=== PATIENT | female | born 1955 | race Caucasian/White ===

== ENCOUNTER 2020-09-03 13:31 | Emergency (ER) | payer MEDICAID, SELFPAY ==
[2020-09-03 13:41] VITALS: BP 177/84; PULSE 69; RESP 16; TEMP 36.6; O2SAT 94
--- NOTE | 2020-09-03 13:44 | ED.BACK ---
HPI - Back Pain/Injury General Chief Complaint: Back Pain/Injury Stated Complaint: low back and R leg pain Time Seen by Provider: 09/03/20 13:49 Source: patient Mode of arrival: ambulatory Limitations: no limitations History of Present Illness HPI Narrative: 65-year-old woman comes in today complaining of right lower back pain that started when she woke up at 6:30 a.m. this morning. Patient states the pain radiates down her right buttock, her and down her right leg to her foot. She denies falls or trauma and any weakness, incontinence, dysuria, hematuria and states that she has had urinary frequency and urgency for some time. He states he has episodes of back pain in the past but has not seen a doctor for. This morning she took Tylenol, ibuprofen and cyclobenzaprine for her symptoms. She has had no vomiting, diarrhea, abdominal pain, fever, chills or night sweats. 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 MD elicited complaint: back pain Pertinent past history: prior back pain Onset (ago): hour(s) (6) Timing: constant Severity: severe Location: lumbar spine Radiation: buttocks (right), right upper leg and right leg below the knee Exacerbating factors: sitting upright Relieving factors: other ( standing) Related Data Allergies Allergy/AdvReac Type Severity Reaction Status Date / Time No Known Allergies Allergy Verified 09/03/20 13:53 Review of Systems Constitutional: Constitutional: Denies chills, Denies fever(s) and Denies weakness Cardiovascular: Cardiovascular: Denies chest pain and Denies radiating jaw, neck or arm pain Respiratory: Respiratory: Denies cough and Denies dyspnea Gastrointestinal: Gastrointestinal: Denies abdominal pain, Denies nausea and Denies vomiting Genitourinary: Genitourinary: Denies hematuria, Reports nocturia, Denies dysuria and Denies urinary incontinence Musculoskeletal: Musculoskeletal: Reports back pain, Denies arthralgias and Denies joint swelling Integumentary/Breasts: Skin/Breast: Denies pruritus, Denies erythema and Denies rash Neurologic: Denies vertigo, Denies dizziness and Denies syncope Allergic/Immunologic: Allergic/Immunologic: Denies lip swelling and Denies throat swelling [facility] Surgical History Surgical History (Updated 09/03/20 @ 14:00 by Woody Wolff MD) H/O laparoscopy Hx of tubal ligation S/P partial hysterectomy Social History Social History Smoking status: Current every day smoker Alcohol intake: current Substance use: never Living arrangements: with family Exam Const: General: healthy appearing and alert Orientation/consciousness: patient oriented x3 Other: Moderate acute distress HENMT: Head: normal to inspection Ears: external ears normal, TM's normal bilaterally and EAC's normal General nose exam: Normal nares present Face and sinus: normal facial exam Mouth: Yes moist mucous membranes Throat: posterior oropharynx normal Eyes: Conjunctivae: conjunctivae normal Pupils: Equal, round and reactive pupils present EOM: EOMs intact bilaterally Resp: Effort & Inspection: normal respiratory effort and not labored Auscultation: clear to auscultation bilaterally, no rales, no rhonchi and no wheezes Cardio: Rate: regular rate Rhythm: regular rhythm Heart sounds: no murmurs Skin: General skin exam: normal color, no jaundice and no pallor Rashes: no rashes Neuro: General: patient oriented x3, moves all extremities, no focal motor deficits and CN's II-XI intact bilaterally Speech: normal speech Gait exam (Neuro): Normal gait present Extrem: General: normal to inspection and no clubbing, cyanosis or edema Psych: Appearance: grossly normal and well kempt Mental Status: mental status grossly normal Affect: normal affect Attitude: cooperative Thought content: Yes Normal thought content present Course Vital Signs Vital signs: Vital Signs
[2020-09-03 14:14] LABS: Add Urine Microscopic? NO; Appearance Urine Clear (Clear); Bilirubin Urine Negative (Negative); Blood Urine Negative (Negative); Color Urine Yellow (Yellow); Glucose Urine UA Negative (Negative); Ketones Urine Negative (Negative); Leukocyte Esterase Ur Negative (Negative); Nitrate Urine Negative (Negative); Protein Urine Negative (Negative); Urobilinogen Urine 0.2 mg/dL (0.2-1.0); pH Urine 6.5 (5.0-8.0)
== END 2020-09-03 14:31 | disposition home or self-care (01) ==
PROVIDERS: Emergency Provider Emergency Medicine
DX: M54.16 Radiculopathy, lumbar region (principal)
CPT/HCPCS: 81003; 99283

== ENCOUNTER 2022-10-25 12:19 | Outpatient (CLI) | payer MEDICARE, SELFPAY ==
--- NOTE | ~2022-10-25 | CT_ITS ---
Non-contrast Head CT History: Tremors, neuropathy Technique: Axial non-contrast imaging of the brain was performed. Dose reduction technique was used on this scan by utilizing automated exposure control and iterative reconstruction technique. The dose -length product (DLP) was 605.33 mGy-cm. Findings: There is no evidence of intracranial hemorrhage, mass lesion, or acute infarct. Brain par enchyma appears normal. The ventricles and subarachnoid spaces are normal in size. The calvarium ap pears normal. The visualized paranasal sinuses and mastoid air cells are clear. Impression: No significant abnormality seen. Reviewed, dictated and finalized at location . CUTTER Impression: No significant abnormality seen.
== END 2022-10-25 12:20 | disposition home or self-care (01) ==
LOC: CHSIMG 12:21
PROVIDERS: PCP Nurse Practitioner; Visit Provider Nurse Practitioner
DX: R41.3 Other amnesia (principal)
CPT/HCPCS: 70450

== ENCOUNTER 2023-08-16 16:54 | Emergency (ER) | payer MEDICARE, SELFPAY ==
[2023-08-16 16:54] VITALS: BP 177/87; PULSE 76; RESP 20; TEMP 37.1; O2SAT 96
--- NOTE | 2023-08-16 19:14 | ED.HEATRA ---
HPI - Head Injury General Chief complaint: Head Injury Stated complaint: head injury Time Seen by Provider: 08/16/23 17:58 History of Present Illness HPI Narrative: Patient is a 68-year-old female with this episode history presents today for head laceration. She has about a 5cm head laceration on the back of her head. She states she was cutting off a tree range and fell and hit her head on the branch After it was on the ground. He was BP Yousif she was able to stop bleeding with gauze. She is not today with a Tdap. She does not have any other symptoms. She had a minor headache after she had the injury but that is gone. Complaint: head injury Onset (ago): hour(s) Mechanism of Injury: fall Place: home Loss of Consciousness: no Location of injury: occipital Severity: mild Severity scale (1-10): 3 Quality: sharp Radiation: none Other Injuries: none Associated symptoms: denies other symptoms Related Data Allergies Allergy/AdvReac Type Severity Reaction Status Date / Time No Known Allergies Allergy Verified 08/16/23 17:12 Review of Systems Review of Systems: All systems reviewed & are unremarkable except as noted in HPI and below Constitutional: Constitutional: Reports as per HPI Eyes: Eyes: Reports no additional eye complaints ENT: Reports as per HPI Cardiovascular: Cardiovascular: Reports no additional cardiovascular complaints Respiratory: Respiratory: Reports no additional respiratory complaints Gastrointestinal: Gastrointestinal: Reports no additional gastrointestinal complaints Genitourinary: Genitourinary: Reports no additional female genitourinary complaints Musculoskeletal: Musculoskeletal: Reports no additional musculoskeletal complaints Integumentary/Breasts: Skin/Breast: Reports system reviewed and no additional complaints, except as docu Neurologic: Reports system reviewed and no additional complaints, except as documented Psychiatric: Psychiatric: Reports no additional psychiatric complaints Endocrine: Endocrine: Reports no additional endocrine complaints Hematologic/Lymphatic: Hematologic/Lymphatic: Reports no additional hematologic/lymphatic complaints Allergic/Immunologic: Allergic/Immunologic: Reports no additional allergic/immunologic complaints PMFSH Surgical History Surgical History H/O laparoscopy Hx of tubal ligation S/P partial hysterectomy Social History Social History Smoking status: Current every day smoker Alcohol intake: current Substance use: never Living arrangements: with family Exam Const: General: healthy appearing Nutritional Appearance: well nourished Orientation/consciousness: patient oriented x3 Limitations: no limitations HENMT: Head: laceration (5cm back of head) Ears: external ears normal Face/Nose/Sinus: Normal external nose present Face and sinus: normal facial exam Mouth: Yes Normal oral and palatal mucosa present Teeth and gingiva: dentition normal Throat: posterior oropharynx normal Eyes: Conjunctivae: conjunctivae normal Pupils: Equal, round and reactive pupils present EOM: EOMs intact bilaterally Neck: Neck: normal visual inspection Chest: Chest palpation & inspection: normal inspection of the chest Resp: Effort & Inspection: normal respiratory effort Cardio: Rate: regular rate Rhythm: regular rhythm Heart sounds: Murmur heart sound present GI: GI Palp: Yes Soft to palpation Auscultation: normal bowel sounds Back/Spine/Pelvis: Back: no CVA tenderness Skin: General skin exam: normal color Rashes: no rashes Other: 5cm laceration back of head Neuro: General: patient oriented x3 Cranial nerves: Yes CN's II-XII intact bilaterally Speech: normal speech Gait exam (Neuro): Normal gait present Extrem: General: normal to inspection Psych: Mental Status: mental status grossly normal Course Vital Sign
[2023-08-16] MEDS: TETANUS,DIPHTHERIA,AC PERTUSSIS ADULT 0.5 ML (ADACEL) IM (19:25)
[2023-08-16 19:27] VITALS: BP 140/78; PULSE 87; RESP 20; O2SAT 98
== END 2023-08-16 19:34 | disposition home or self-care (01) ==
PROVIDERS: Emergency Provider Family Medicine
DX: S01.01XA Laceration without foreign body of scalp, initial encounter (principal); F17.200 Nicotine dependence, unspecified, uncomplicated; Z23 Encounter for immunization; W45.8XXA Other foreign body or object entering through skin, initial encounter; Y92.009 Unspecified place in unspecified non-institutional (private) residence as the place of occurrence of the external cause
CPT/HCPCS: 12002; 90715; 99283

== ENCOUNTER 2023-08-18 09:14 | Emergency (ER) | payer MEDICARE, SELFPAY ==
--- NOTE | ~2023-08-18 | CT_ITS ---
EXAMINATION: CT cervical spine wo con DATE: 08/18/2023 11:22 INDICATION: Neck pain after recent fall 2 days ago. TECHNIQUE: Computed tomography (CT) of the cervical spine was performed without intravenous contrast. The dose-length product was 482 mGy-cm. Automated exposure control and iterative reconstruction tech nique were employed. COMPARISON: None FINDINGS: There is disc narrowing at C5-6, C6-7 and C7-T1 with endplate hypertrophy and sclerosis. Cr aniovertebral junction is normal. Odontoid process is normal. There is multilevel uncinate and facet hypertrophy. Lung apices are normal. There is a sclerotic lesion of C2 on the left, likely bone islan d. No evidence for perched facet. IMPRESSION: 1. No acute abnormality of the cervical spine. 2: Moderate-severe cervical spondylosis. Reviewed, dictated and finalized at location A. OSAL LEAD WRITER
--- NOTE | ~2023-08-18 | CT_ITS ---
EXAMINATION: CT BRAIN W/O DATE: 08/18/2023 11:22 INDICATION: Status post fall 2 days ago. TECHNIQUE: Computed tomography (CT) of the head was performed without intravenous contrast. The dose- length product was 681.00 mGy-cm. Automated exposure control and iterative reconstruction technique w ere employed. COMPARISON: CT dated 10/04/2022 FINDINGS: Normal brain parenchymal volume for age. Normal hanley-white differentiation. No acute intrac ranial hemorrhage, infarction, mass or mass effect. No ventriculomegaly or midline shift. Midline sagittal images demonstrate a normal corpus callosum, c raniovertebral junction and sella turcica. Basilar cisterns are patent. Paranasal sinuses and mastoids are pneumatized. No depressed skull fractures. IMPRESSION: 1. No acute intracranial abnormality. Reviewed, dictated and finalized at location A. FLIGHT CREW MEMBER
--- NOTE | ~2023-08-18 | CT_ITS ---
EXAMINATION: CT chest abdomen pelvis w con DATE: 08/18/2023 11:28 MEDICAL HEALTH RESEARCHER INDICATION: Status post fall. Left rib and back pain. TECHNIQUE: Computed tomography (CT) of the chest, abdomen, and pelvis was performed with 100 cc Omnip aque 350 intravenous contrast. The dose-length product was 1537.51 mGy-cm. Automated exposure control and iterative reconstruction technique were employed. COMPARISON: None FINDINGS: CHEST CT: Heart size normal. No significant pleural or pericardial effusion. No thoracic lymphadenopathy. There is atherosclerosis. No focal airspace disease. No endobronchial lesions. No pneumothorax. There is d egenerative grade 1 spondylolisthesis at L4-5. There is moderate thoracic and lumbar spondylosis. ABDOMEN/PELVIS CT: Fatty infiltration of the liver. Small hypervascular lesion right hepatic lobe, possibly benign trans ient hepatic difference or hemangioma. The spleen, pancreas, adrenal glands and left kidney are unrem arkable. There is a small right renal cysts. There is an small accessory splenule. The pancreas is un remarkable. Nonobstructive bowel gas pattern. There is atherosclerosis of the aorta without aneurysm. There is a retroaortic left renal vein. No free air or free fluid. IMPRESSION: 1. No acute abnormality of the chest, abdomen or pelvis. Reviewed, dictated and finalized at location A. [employer] HE[employer] RESEARCHER
[2023-08-18 09:14] VITALS: BP 163/90; PULSE 78; RESP 16; TEMP 36.3; O2SAT 95
--- NOTE | 2023-08-18 09:25 | WC.ED.TRAUMA ---
HPI - Trauma General Chief Complaint: Back Pain/Injury Stated Complaint: left side rib pain Time Seen by Provider: 08/18/23 09:24 History of Present Illness HPI narrative: Patient is a 68 year old female here with left rib pain. Patient notes that 2 days ago she was about 6 feet up on an 8 foot ladder, cutting some branches with a small chain saw when a branch hit her ladder and caused her to fall down to the ground on her left side. She notes that she did hit her head, did not lose consciousness. She came into the ER that day, got jenny in her scalp and left with antibiotics which she began taking yesterday. She notes that after she went home she started noticing significant pain in her left side where she fell to the ground. Pain is located in the back over her lower ribs and worse with movement or any cough. She does have a history of COPD, is a smoker with a chronic cough which makes the pain worse with any coughing. She notes it has been difficult to bring up any of her typical sputum due to the pain with her coughing. This cough does not seem to be worse or more productive than usual. No hematuria or blood in her stools, no abdominal pain. Related Data Allergies Allergy/AdvReac Type Severity Reaction Status Date / Time No Known Allergies Allergy Verified 08/18/23 09:25 Review of Systems Review of Systems: All systems reviewed & are unremarkable except as noted in HPI and below PMFSH Surgical History Surgical History H/O laparoscopy Hx of tubal ligation S/P partial hysterectomy Social History Social History Smoking status: Current every day smoker Alcohol intake: current Substance use: never Living arrangements: with family Exam Narrative: GENERAL: Well-appearing, well-nourished, and in no acute distress. HEAD: Normocephalic, atraumatic. EYES: PERRLA and EOMI. ENT: Nares clear. Mucous membranes moist. NECK: Supple. CHEST: Clear to auscultation. No respiratory distress. Left lower rib tenderness over the lateral and posterior aspects. No bony stepoffs appreciated. Faint erythema present posteriorly, no ecchymosis. HEART: Regular rate and rhythm. Normal peripheral pulses. ABDOMEN: Soft, nontender, nondistended. L CVA tenderness. EXTREMITIES: Normal range of motion. No edema. SKIN: Warm, dry, no rash. NEURO: No focal deficits. Alert and oriented x3. PSYCH: Normal mood and affect. Course Course Emergency Course: Chart review performed. Patient here with lower right posterior chest pain after a fall. Patient was seen here on 08/16/23 for a the same. She was cutting a branch and it hit her head. A laceration repair was performed and she was discharged on antibiotics. Patient seen and evaluated. Non toxic appearing. Here 2 days after a fall. No imaging performed during that visit due to patient being in a hurry to leave the department. Concern for location of her pain. Will do imaging to evaluate for possible rib fracture, pulmonary contusion, pneumothorax, splenic injury, renal contusion. Tylenol and lidoderm patch ordered for pain as patient drove herself into the ED. Basic lab work ordered for imaging. Lab work and imaging reviewed. No baseline in our system. No leukocytosis, no anemia, electrolytes grossly normal. CTs are all read as negative, concern for possible 11th non displaced rib fracture. Discussed this will radiologist, addendum placed in chart. Toradol given. Will start patient on lidoderm patches, tylenol, ibuprofen, and oxycodone for breakthrough pain. Advised to follow closely with PCP. Will provide with incentive spirometer. The results of pertinent diagnostic studies and exam findings were discussed. The patient?s provisional diagnosis and plan of care were discussed with the patient and present family. The patient and/or present family expressed understanding of the diagnosis and plan.
[2023-08-18] MEDS: ACETAMINOPHEN 500 MG TABLET 1000 MG PO (09:58)
[2023-08-18 10:16] LABS: Basophils Absolute Auto 0.09 K/mm3 (0.00-0.10); Basophils Percent Auto 0.9 % (0.0-1.0); Eosinophils Absolute Auto 0.06 K/mm3 (0.02-0.50); Eosinophils Percent Auto 0.6 % (1.0-6.0); Hematocrit 44.7 % (35.0-42.0); Hemoglobin 14.9 g/dL (11.7-13.8); Immature Granulocyte Absolute 0.04 K/mm3 (0.00-0.00); Immature Granulocyte Percent A 0.4 % (0.0-0.0); Lymphocytes Absolute Auto 2.04 K/mm3 (1.10-4.50); Mean Corpuscular HGB Conc 33.3 g/dL (32.0-36.0); Mean Corpuscular Hemoglobin 31.2 pg (27.0-31.0); Mean Corpuscular Volume 93.5 fL (78.0-102.0); Mean Platelet Volume 11.2 fl (9.2-11.8); Monocytes Absolute Auto 0.68 K/mm3 (0.10-0.90); Monocytes Percent Auto 6.7 % (2.0-11.0); Neutrophils Absolute Auto 7.3 K/mm3 (1.7-7.2); Neutrophils Percent Auto 71.4 % (50.0-70.0); Platelet Count Result 299 K/mm3 (150-420); Red Blood Count 4.78 M/mm3 (4.20-5.40); Red Cell Distribution Width 12.6 % (11.6-14.4); White Blood Count 10.2 K/mm3 (4.8-10.8)
[2023-08-18 10:32] LABS: Alanine Aminotransferase 20 U/L (14-59); Albumin Level 3.9 g/dL (3.4-5.0); Alkaline Phosphatase 81 U/L (46-116); Anion Gap 4 mmol/L (8-16); Aspartate Amino Transferase 18 U/L (15-37); Bilirubin,Total 0.4 mg/dL (0.00-1.00); Blood Urea Nitrogen 9 mg/dL (7-18); Calcium 9.5 mg/dL (8.5-10.1); Carbon Dioxide 30 mmol/L (21-32); Chloride 103 mmol/L (98-108); Estimated CRCL calculation 49 ml/min; Estimated Glomerular Filt Rate 51; Glucose 108 mg/dL (70-99); Osmolality Calculated 283 mOsm/kg (285-295); Potassium 4.1 mmol/L (3.5-5.1); Sodium 137 mmol/L (136-145); Total Protein 7.8 g/dL (6.4-8.2)
[2023-08-18 11:06] VITALS: BP 136/80; PULSE 83; RESP 13; O2SAT 97
[2023-08-18 12:15] VITALS: BP 131/67; PULSE 62; RESP 15; TEMP 36.9; O2SAT 98
[2023-08-18] MEDS: KETOROLAC 15 MG/ML VIAL (*BKC) IV PUSH (12:20)
== END 2023-08-18 12:24 | disposition home or self-care (01) ==
PROVIDERS: Emergency Provider Student in an Organized Health Care Education/Training Program
DX: S22.32XA Fracture of one rib, left side, initial encounter for closed fracture (principal); J44.9 Chronic obstructive pulmonary disease, unspecified; F17.200 Nicotine dependence, unspecified, uncomplicated; W19.XXXA Unspecified fall, initial encounter
CPT/HCPCS: 36415; 70450; 71260; 72125; 74177; 80053; 85025; 96374; 99284; J1885; Q9967